=== PATIENT | female | born 1960 | race African-American/Black ===

== ENCOUNTER 2020-05-08 17:37 | Inpatient (IN) ==
[2020-05-08] MEDS ORDERED: ONDANSETRON 4 MG/2 ML VIAL IV STA (18:57)
[2020-05-08] MEDS ORDERED: PANTOPRAZOLE 40 MG VIAL IV STA (18:57)
[2020-05-08] MEDS ORDERED: HYDROmorphone 2 MG/1 ML VIAL IV STA (18:57)
[2020-05-08] MEDS ORDERED: SODIUM CHLORIDE 0.9% 500 ML IV STA (18:57)
[2020-05-08] MEDS ORDERED: ALUM/MAG/SIMETH/LIDO VISC 1:1 30 ML BOTTLE PO STA (18:57)
[2020-05-08 19:38] LABS: Basophils # 0.1 10*3/uL (0.0-0.2); Basophils % 0.4 % (0.0-0.8); Eosinophils % 0.3 % (0.00-10.9); Hematocrit 44.3 VOL% (35.7-47.0); Immature Granulocytes % 0.4 %; Immature Granulocytes Absolute 0.04 #; Lymphocytes # 1.4 10*3/uL (1.4-4.0); Lymphocytes % 12.3 % (21.3-54.2); Mean Corpuscular HGB Conc 36.8 GM/DL (32-36); Mean Platelet Volume 11.8 FL (9.6-12.0); Monocytes % 5.1 % (1.7-12.7); Neutrophils % 81.5 % (38.7-73.9); Platelet Count 243 T/CUMM (130-400); Red Blood Count 4.87 MC/CUMM (3.8-5.5); Red Cell Distribution Width 13.2 % (9.3-17.3); White Blood Count 11.4 T/CUMM (4-12)
[2020-05-08 19:39] LABS: Bilirubin,Urine Small mg/dL (Negative); Blood, Urine Moderate mg/dL (Negative); Glucose,Urine (UA) Negative (Negative); Hyaline Casts,Urine 29 /LPF (0-3); Ketones,Urine Negative (Negative); Mucus,Urine Many /LPF (Occasional); Nitrite,Urine Negative (Negative); Protein,Urine 30 MG/DL; RBC,Urine 5 /HPF (0-4); Squamous Epithelial Cell,Urine Occasional /HPF (0-10); Urine Appearance Slightly Hazy (Clear); Urine Color Amber (Yellow); Urine Specific Gravity 1.031 (1.001-1.035); Urine Urobilinogen < 2.0 EU/DL (0.2-1.0); WBC,Urine 4 /HPF (0-6)
[2020-05-08 19:39] LABS: Hemoglobin 16.3 GM/DL (12.0-16.0)
[2020-05-08 19:42] LABS: Albumin 3.8 G/DL (3.4-5.0); Bilirubin,Total 1.4 MG/DL (0.2-1.0); Calcium 8.6 MG/DL (8.5-10.1); Osmolality,Calculated 259.1 MOS/KG (273-304); Potassium 3.7 MMOL/L (3.5-5.1); Total Protein 7.7 G/DL (6.4-8.2)
[2020-05-08] MEDS ORDERED: ZALEPLON 5 MG CAPSULE PO PRN (21:22)
[2020-05-08] MEDS ORDERED: hydrALAZINE 20 MG/1 ML VIAL IV PRN (21:22)
[2020-05-08] MEDS ORDERED: NICOTINE 21 MG/24 HR PATCH TRANSDERM PRN (21:22)
[2020-05-08] MEDS ORDERED: guaiFENesin/DM ER 600-30 MG TABLET PO PRN (21:22)
[2020-05-08] MEDS ORDERED: DEXTROSE 50% 25 GM/50 ML VIAL IV PRN (21:22)
[2020-05-08] MEDS ORDERED: ACETAMINOPHEN 325 MG TABLET PO PRN (21:22)
[2020-05-08] MEDS ORDERED: PROMETHAZINE 25 MG TABLET PO PRN (21:22)
[2020-05-08] MEDS ORDERED: GLUCAGON 1 MG VIAL IM PRN (21:22)
[2020-05-08] MEDS ORDERED: diphenhydrAMINE CAP 25 MG CAPSULE PO PRN (21:22)
[2020-05-08] MEDS: MORPHINE 4 MG/1 ML VIAL IV PRN (22:51)
[2020-05-08] MEDS: ENOXAPARIN 40 MG/0.4 ML SYRINGE SUBCUT SCH (22:51)
[2020-05-09] MEDS: ONDANSETRON 4 MG/2 ML VIAL IV PRN ×6 (00:20→20:59)
[2020-05-09] MEDS ORDERED: DEXT 5% NACL 0.9% KCL 40 MEQ 40 MEQ/1,000 ML BAG IV SCH (00:30)
[2020-05-09] MEDS: MORPHINE 4 MG/1 ML VIAL IV PRN ×3 (04:16→12:39)
[2020-05-09 07:11] LABS: Basophils # 0.1 10*3/uL (0.0-0.2); Basophils % 0.5 % (0.0-0.8); Eosinophils % 0.3 % (0.00-10.9); Hematocrit 41.5 VOL% (35.7-47.0); Hemoglobin 14.8 GM/DL (12.0-16.0); Immature Granulocytes % 0.6 %; Immature Granulocytes Absolute 0.06 #; Lymphocytes # 1.4 10*3/uL (1.4-4.0); Lymphocytes % 13.4 % (21.3-54.2); Mean Corpuscular HGB Conc 35.7 GM/DL (32-36); Mean Platelet Volume 10.9 FL (9.6-12.0); Monocytes % 6.5 % (1.7-12.7); Neutrophils % 78.7 % (38.7-73.9); Platelet Count 206 T/CUMM (130-400); Red Blood Count 4.51 MC/CUMM (3.8-5.5); Red Cell Distribution Width 13.6 % (9.3-17.3); White Blood Count 10.7 T/CUMM (4-12)
[2020-05-09 07:32] LABS: Risk Ratio 8.55; VLDL CHOLESTEROL 196.4 MG/DL
[2020-05-09 08:13] LABS: Albumin 3.1 G/DL (3.4-5.0); Bilirubin,Total 1.2 MG/DL (0.2-1.0); Calcium 8.5 MG/DL (8.5-10.1); Osmolality,Calculated 269.4 MOS/KG (273-304); Potassium 3.3 MMOL/L (3.5-5.1); Total Protein 7.5 G/DL (6.4-8.2)
[2020-05-09] MEDS: PANTOPRAZOLE 40 MG VIAL IV SCH ×2 (08:42→21:01)
[2020-05-09] MEDS: POTASSIUM CHLORIDE INJ 20 MEQ in LACTATED RINGERS 1,000 ML IV SCH ×2 (09:55→16:05)
[2020-05-09] MEDS: PIPERACILLIN/TAZOBACTAM 3,375 MG in SODIUM CHLORIDE 0.9% 100 ML IV SCH ×2 (09:55→16:05)
[2020-05-09] MEDS: METOPROLOL TARTRATE 5 MG/5 ML VIAL IV PRN (16:21)
[2020-05-09] MEDS: HYDROmorphone 2 MG/1 ML VIAL IV PRN ×2 (16:52→21:00)
[2020-05-09] MEDS: ENOXAPARIN 40 MG/0.4 ML SYRINGE SUBCUT SCH (20:58)
[2020-05-10] MEDS: PIPERACILLIN/TAZOBACTAM 3,375 MG in SODIUM CHLORIDE 0.9% 100 ML IV SCH ×3 (00:53→21:51)
[2020-05-10] MEDS: METOPROLOL TARTRATE 5 MG/5 ML VIAL IV PRN ×2 (01:03→08:24)
[2020-05-10] MEDS: POTASSIUM CHLORIDE INJ 20 MEQ in LACTATED RINGERS 1,000 ML IV SCH ×6 (03:51→21:49)
[2020-05-10] MEDS: HYDROmorphone 2 MG/1 ML VIAL IV PRN ×5 (03:51→20:25)
[2020-05-10] MEDS: ONDANSETRON 4 MG/2 ML VIAL IV PRN ×5 (03:52→20:25)
[2020-05-10 05:23] LABS: Basophils # 0.1 10*3/uL (0.0-0.2); Basophils % 0.4 % (0.0-0.8); Eosinophils % 0.3 % (0.00-10.9); Hematocrit 37.4 VOL% (35.7-47.0); Hemoglobin 13.3 GM/DL (12.0-16.0); Immature Granulocytes % 0.8 %; Immature Granulocytes Absolute 0.09 #; Lymphocytes # 1.6 10*3/uL (1.4-4.0); Lymphocytes % 13.6 % (21.3-54.2); Mean Corpuscular HGB Conc 35.6 GM/DL (32-36); Mean Platelet Volume 11.3 FL (9.6-12.0); Monocytes % 7.4 % (1.7-12.7); Neutrophils % 77.5 % (38.7-73.9); Platelet Count 175 T/CUMM (130-400); Red Blood Count 4.02 MC/CUMM (3.8-5.5); Red Cell Distribution Width 14.2 % (9.3-17.3); White Blood Count 11.5 T/CUMM (4-12)
[2020-05-10 05:45] LABS: Bilirubin,Total 2.2 MG/DL (0.2-1.0); Calcium 9.3 MG/DL (8.5-10.1); Osmolality,Calculated 276.7 MOS/KG (273-304); Potassium 3.2 MMOL/L (3.5-5.1); Total Protein 7.7 G/DL (6.4-8.2)
[2020-05-10 07:12] LABS: Lymphocytes 23 % (20-55); Nucleated Red Blood Cells 1 (0-5); Platelet Estimate Normal; Segmented Neutrophils 70 % (50-85)
[2020-05-10 07:13] LABS: Total Cells Counted 100
[2020-05-10] MEDS: PANTOPRAZOLE 40 MG VIAL IV SCH ×2 (08:24→20:24)
[2020-05-10] MEDS ORDERED: POTASSIUM CHLORIDE 20 MEQ TABLET PO ONE (10:44)
[2020-05-10] MEDS: PROPRANOLOL 10 MG TABLET PO SCH ×2 (12:16→20:14)
[2020-05-10] MEDS: POTASSIUM CHLORIDE RIDER 10 MEQ in PREMIX 1 EACH IV SCH ×5 (12:23→21:40)
[2020-05-10] MEDS: ENOXAPARIN 40 MG/0.4 ML SYRINGE SUBCUT SCH (20:14)
[2020-05-10] MEDS: EZETIMIBE 10 MG TABLET PO SCH (20:14)
[2020-05-11] MEDS: ONDANSETRON 4 MG/2 ML VIAL IV PRN ×2 (04:35→19:34)
[2020-05-11] MEDS: HYDROmorphone 2 MG/1 ML VIAL IV PRN ×3 (04:35→19:30)
[2020-05-11] MEDS: PIPERACILLIN/TAZOBACTAM 3,375 MG in SODIUM CHLORIDE 0.9% 100 ML IV SCH (05:33)
[2020-05-11 05:57] LABS: Basophils # 0.1 10*3/uL (0.0-0.2); Basophils % 0.5 % (0.0-0.8); Eosinophils # 0.2 10*3/uL (0.0-0.87); Hematocrit 32.4 VOL% (35.7-47.0); Hemoglobin 11.5 GM/DL (12.0-16.0); Immature Granulocytes % 0.6 %; Immature Granulocytes Absolute 0.06 #; Lymphocytes # 1.7 10*3/uL (1.4-4.0); Lymphocytes % 17.4 % (21.3-54.2); Mean Corpuscular HGB Conc 35.5 GM/DL (32-36); Mean Corpuscular Volume 93.6 FL (87-102); Mean Platelet Volume 11.8 FL (9.6-12.0); Monocytes % 6.9 % (1.7-12.7); Neutrophils % 72.6 % (38.7-73.9); Platelet Count 182 T/CUMM (130-400); Red Blood Count 3.46 MC/CUMM (3.8-5.5); Red Cell Distribution Width 14.5 % (9.3-17.3); White Blood Count 9.6 T/CUMM (4-12)
[2020-05-11 06:19] LABS: Albumin 2.8 G/DL (3.4-5.0); Bilirubin,Total 2.8 MG/DL (0.2-1.0); Calcium 9.3 MG/DL (8.5-10.1); Osmolality,Calculated 274.7 MOS/KG (273-304); Potassium 3.2 MMOL/L (3.5-5.1); Total Protein 7.3 G/DL (6.4-8.2)
[2020-05-11] MEDS: PROPRANOLOL 10 MG TABLET PO SCH ×2 (08:22→20:44)
[2020-05-11] MEDS: PANTOPRAZOLE 40 MG VIAL IV SCH (08:23)
[2020-05-11] MEDS ORDERED: FENOFIBRATE 48 MG TABLET PO SCH (09:00)
[2020-05-11] MEDS ORDERED: POTASSIUM CHLORIDE 20 MEQ TABLET PO ONE (13:00)
[2020-05-11] MEDS: PANTOPRAZOLE 40 MG TABLET PO SCH (19:34)
[2020-05-11] MEDS: AMOXICILLIN/CLAV 875 MG TABLET PO SCH (20:44)
[2020-05-11] MEDS: ENOXAPARIN 40 MG/0.4 ML SYRINGE SUBCUT SCH (20:44)
[2020-05-11] MEDS: OMEGA 3 ACID ETHYL ESTERS 1 GM CAPSULE PO SCH (20:44)
[2020-05-11] MEDS: EZETIMIBE 10 MG TABLET PO SCH (20:44)
[2020-05-12 05:07] LABS: Basophils % 0.5 % (0.0-0.8); Eosinophils # 0.2 10*3/uL (0.0-0.87); Eosinophils % 3.2 % (0.00-10.9); Hematocrit 29.9 VOL% (35.7-47.0); Hemoglobin 10.3 GM/DL (12.0-16.0); Immature Granulocytes % 1.2 %; Immature Granulocytes Absolute 0.07 #; Lymphocytes # 1.4 10*3/uL (1.4-4.0); Lymphocytes % 23.8 % (21.3-54.2); Mean Corpuscular HGB Conc 34.4 GM/DL (32-36); Mean Corpuscular Volume 94.6 FL (87-102); Mean Platelet Volume 10.9 FL (9.6-12.0); Monocytes % 8.2 % (1.7-12.7); Neutrophils % 63.1 % (38.7-73.9); Platelet Count 197 T/CUMM (130-400); Red Blood Count 3.16 MC/CUMM (3.8-5.5); Red Cell Distribution Width 14.1 % (9.3-17.3)
[2020-05-12 05:37] LABS: Albumin 2.5 G/DL (3.4-5.0); Bilirubin,Direct 0.41 MG/DL (0.0-0.20); Bilirubin,Indirect 1.5 MG/DL (0.0-1.0); Bilirubin,Total 1.9 MG/DL (0.2-1.0); Total Protein 6.8 G/DL (6.4-8.2)
[2020-05-12 05:38] LABS: Risk Ratio 9.08; VLDL CHOLESTEROL 47.6 MG/DL
[2020-05-12 05:39] LABS: Albumin 2.5 G/DL (3.4-5.0); Bilirubin,Total 1.3 MG/DL (0.2-1.0); Calcium 9.6 MG/DL (8.5-10.1); Osmolality,Calculated 270.8 MOS/KG (273-304); Potassium 3.3 MMOL/L (3.5-5.1); Total Protein 6.7 G/DL (6.4-8.2)
[2020-05-12] MEDS: PANTOPRAZOLE 40 MG TABLET PO SCH (06:28)
[2020-05-12] MEDS: OMEGA 3 ACID ETHYL ESTERS 1 GM CAPSULE PO SCH (08:25)
[2020-05-12] MEDS: AMOXICILLIN/CLAV 875 MG TABLET PO SCH (08:25)
[2020-05-12] MEDS: PROPRANOLOL 10 MG TABLET PO SCH (08:25)
[2020-05-12] MEDS ORDERED: FENOFIBRATE 145 MG TABLET PO SCH (09:00)
[2020-05-12] MEDS ORDERED: FENOFIBRATE 48 MG TABLET PO SCH (09:00)
[2020-05-12 11:23] VITALS: BP 134/77
== END 2020-05-12 11:36 | disposition home or self-care (01) | DRG 439 ==
LOC: N.ED 17:37 → N.EDINP 21:22 → SUATTDRO 21:22 → N.5E 23:33
PROVIDERS: ADMIT Hospitalist; ATTEND Internal Medicine